=== PATIENT | female | born 1945 | race Caucasian/White ===

== ENCOUNTER → 2019-12-27 13:39 | Outpatient (REF) | payer MEDICARE, SELFPAY | LOC: ANHLAB 13:39 | PROVIDERS: PCP Family Medicine; Visit Provider Nurse Practitioner | DX: L82.1 Other seborrheic keratosis (principal) | CPT/HCPCS: 88305 ==

== ENCOUNTER → 2020-01-24 13:01 | Outpatient (REF) | payer MEDICARE, SELFPAY | LOC: ANHLAB 13:01 | PROVIDERS: PCP Family Medicine; Visit Provider Nurse Practitioner | DX: D49.2 Neoplasm of unspecified behavior of bone, soft tissue, and skin (principal) | CPT/HCPCS: 88305 ==

== ENCOUNTER → 2020-05-22 14:40 | Outpatient (REF) | payer MEDICARE, SELFPAY | LOC: ANHLAB 14:40 | PROVIDERS: PCP Family Medicine; Visit Provider Nurse Practitioner | DX: D22.5 Melanocytic nevi of trunk (principal) | CPT/HCPCS: 88305; 88342 ==